=== PATIENT | male | born 1960 | race American Indian/Alaskan Native ===

== ENCOUNTER 2020-10-21 15:56 | Inpatient (IN) | payer OTHER ==
[2020-10-21 19:13] LABS: INR 1.07 (0.83-1.09); PROTHROMBIN TIME (PATIENT) 12.9 SEC (9.7-13.0)
[2020-10-21 19:16] LABS: ACTIVATED PTT 30.7 SECONDS (25.2-36.5)
[2020-10-21 19:26] LABS: CHLORIDE 108 mmol/L (98-107); SODIUM 131 mmol/L (136-145)
[2020-10-21 19:29] LABS: ALBUMIN 3.5 g/dl (3.4-5.0); ANION GAP 16 MMOL/L (8-16); BLOOD UREA NITROGEN 100.4 mg/dL (7-18); CALCIUM 8.2 mg/dL (8.5-10.1); CO2 6 mmol/L (21-32); GLUCOSE,RANDOM 273 mg/dL (74-106)
[2020-10-21 19:32] LABS: SGOT/AST 19 U/L (15-37); SGPT/ALT 79 U/L (13-61)
[2020-10-21 19:34] LABS: BILIRUBIN,TOTAL 0.6 mg/dL (0.2-1); TOT PROT 7.4 g/dl (6.4-8.2)
[2020-10-21 19:35] LABS: ALK PHOS 158 U/L (45-117)
[2020-10-21 19:37] LABS: N-TERMINAL BNP 2573.6 pg/ml (5-125)
[2020-10-21 20:02] LABS: BASO % 0.7 % (0-2.0); EOS % 2.9 % (0-4.5); HEMATOCRIT 25.4 % (35.4-49); HEMOGLOBIN 8.4 GM/dL (11.7-16.9); LYMPH % 21.8 % (8-40); MCH 31.4 pg (25.7-33.7); MCHC 32.8 g/dl (32.0-35.9); MEAN CELL VOLUME 95.7 fl (80-96); MONO % 10.7 % (3.8-10.2); NEUT % 63.9 % (42.8-82.8); PLATELET COUNT 258 K/MM3 (134-434); RBC 2.66 M/mm3 (4.00-5.60); RDW 15.2 % (11.9-15.9); WHITE BLOOD COUNT 9.4 K/mm3 (4.0-10.0)
[2020-10-21 20:03] LABS: CREATININE 12.2 mg/dL (0.55-1.3)
[2020-10-21] MEDS ORDERED: SODIUM CHLORIDE 0.9% 500 ML INFUS.BAG IV ONE (20:47)
[2020-10-21] MEDS ORDERED: SODIUM CHLORIDE 0.45% 1,000 ML with SODIUM BICARBONATE 8.4% - 75 MEQ IV SCH (21:00)
[2020-10-21] MEDS ORDERED: SODIUM BICARBONATE 8.4% - 75 MEQ in SODIUM CHLORIDE 0.45% 1,000 ML IV SCH (21:25)
[2020-10-21 22:28] LABS: EPI CELLS 5 /uL (0-25.1); HYALINE CASTS 0 /uL (0-3.1); URINE APPEARANCE CLEAR; URINE BACTERIA 43 /uL (0-1359); URINE BILIRUBIN NEGATIVE (NEGATIVE); URINE COLOR YELLOW; URINE GLUCOSE (UA) 1+ (NEGATIVE); URINE KETONE NEGATIVE (NEGATIVE); URINE LEUK ESTERASE NEGATIVE (NEGATIVE); URINE NITRITE NEGATIVE (NEGATIVE); URINE PROTEIN TRACE (NEGATIVE); URINE RBC 22 /uL (0-23.9); URINE UROBILINOGEN 0.2 mg/dL (0.2-1.0); URINE WBC 8 /uL (0-25.8)
[2020-10-21 23:14] LABS: VENOUS PCO2 22.6 mmHg (38-52)
[2020-10-21 23:16] LABS: VENOUS PH 6.976 (7.310-7.410)
[2020-10-21 23:43] LABS: BLOOD UREA NITROGEN 97.4 mg/dL (7-18)
[2020-10-22 00:52] LABS: CREATININE 12.2 mg/dL (0.55-1.3)
[2020-10-22] MEDS: PANTOPRAZOLE SODIUM 40 MG VIAL IVPUSH SCH ×2 (01:16→09:21)
[2020-10-22 02:04] LABS: MAGNESIUM 1.7 mg/dL (1.8-2.4)
[2020-10-22 02:05] LABS: MAGNESIUM 1.6 mg/dL (1.8-2.4)
[2020-10-22 02:17] LABS: PHOSPHOROUS 8.9 mg/dL (2.5-4.9)
[2020-10-22 02:36] LABS: PHOSPHOROUS 9.1 mg/dL (2.5-4.9)
[2020-10-22] MEDS: INSULIN SLIDING SCALE (NOVOLOG) 1 VIAL SQ SCH ×3 (06:59→16:57)
[2020-10-22 08:21] LABS: BASO % 0.3 % (0-2.0); EOS % 3.5 % (0-4.5); HEMATOCRIT 24.4 % (35.4-49); HEMOGLOBIN 8.3 GM/dL (11.7-16.9); LYMPH % 24.6 % (8-40); MEAN CELL VOLUME 94.1 fl (80-96); MEAN PLT VOLUME 8.8 fl (7.5-11.1); MONO % 10.4 % (3.8-10.2); NEUT % 61.2 % (42.8-82.8); PLATELET COUNT 273 K/MM3 (134-434); RDW 15.1 % (11.9-15.9); WHITE BLOOD COUNT 10.5 K/mm3 (4.0-10.0)
[2020-10-22 08:47] LABS: BLOOD UREA NITROGEN 100.9 mg/dL (7-18)
[2020-10-22] MEDS ORDERED: DEXTROSE 5%-WATER - 1,000 ML with SODIUM BICARBONATE 8.4% - 150 MEQ IV SCH ×2 (09:15→12:18)
[2020-10-22] MEDS ORDERED: MAGNESIUM 1GM/D5W - 1 GM/100 ML IVPB IVPB ONE (09:23)
[2020-10-22 09:33] LABS: CREATININE 12.4 mg/dL (0.55-1.3)
[2020-10-22] MEDS ORDERED: LIDOCAINE HCL 1%, 10 MG/ML (20ML VIAL) ONE (11:31)
[2020-10-22] MEDS ORDERED: SODIUM BICARBONATE 8.4% - 150 MEQ in DEXTROSE 5%-WATER - 1,000 ML IV SCH ×2 (12:19→15:00)
[2020-10-22] MEDS ORDERED: SODIUM CHLORIDE 250 ML IV PRN (15:05)
[2020-10-23] MEDS: INSULIN SLIDING SCALE (NOVOLOG) 1 VIAL SQ SCH ×3 (06:46→16:43)
[2020-10-23 07:35] LABS: BASO % 0.5 % (0-2.0); EOS % 1.3 % (0-4.5); HEMATOCRIT 20.7 % (35.4-49); HEMOGLOBIN 7.2 GM/dL (11.7-16.9); LYMPH % 17.1 % (8-40); MCH 31.8 pg (25.7-33.7); MCHC 34.6 g/dl (32.0-35.9); MEAN CELL VOLUME 91.7 fl (80-96); MEAN PLT VOLUME 8.5 fl (7.5-11.1); MONO % 12.2 % (3.8-10.2); NEUT % 68.9 % (42.8-82.8); PLATELET COUNT 227 K/MM3 (134-434); RBC 2.25 M/mm3 (4.00-5.60); RDW 15.2 % (11.9-15.9); WHITE BLOOD COUNT 7.2 K/mm3 (4.0-10.0)
[2020-10-23 08:29] LABS: HDL CHOLESTEROL 35 mg/dL (40-60); LDL CHOLESTEROL (ONLY SJRH) 61 mg/dL (5-100)
[2020-10-23 08:30] LABS: CHOLESTEROL 102 mg/dL (50-200)
[2020-10-23 08:31] LABS: TRIGLYCERIDES 52 mg/dL (0-150)
[2020-10-23 09:07] LABS: BLOOD UREA NITROGEN 56.7 mg/dL (7-18)
[2020-10-23] MEDS: PANTOPRAZOLE SODIUM 40 MG VIAL IVPUSH SCH (09:07)
[2020-10-23 09:19] LABS: CREATININE 7.8 mg/dL (0.55-1.3)
[2020-10-23 09:20] LABS: CALCIUM 6.9 mg/dL (8.5-10.1)
[2020-10-23] MEDS ORDERED: POTASSIUM CHLORIDE ORAL LIQUID 20 MEQ/15 ML PO ONE (10:05)
[2020-10-23] MEDS: CALCITRIOL 0.25 MCG CAPSULE (FP) PO SCH (10:48)
[2020-10-23] MEDS: CALCIUM ACETATE 667 MG CAPSULE (FP) PO SCH ×2 (11:35→17:34)
[2020-10-23] MEDS ORDERED: SODIUM CHLORIDE 500 ML IV ONE (11:45)
[2020-10-23 12:31] LABS: MAGNESIUM 1.5 mg/dL (1.8-2.4)
[2020-10-23 12:34] LABS: PHOSPHOROUS 6.1 mg/dL (2.5-4.9)
[2020-10-23] MEDS: MAGNESIUM 1GM/D5W - 1 GM/100 ML IVPB IVPB SCH ×2 (13:56→14:21)
[2020-10-23] MEDS ORDERED: SODIUM BICARBONATE 8.4% - 150 MEQ in DEXTROSE 5%-WATER - 1,000 ML IV SCH (15:19)
[2020-10-24] MEDS: INSULIN SLIDING SCALE (NOVOLOG) 1 VIAL SQ SCH ×3 (06:16→18:39)
[2020-10-24] MEDS ORDERED: LEVOTHYROXINE NA 50 MCG TABLET (FP) PO SCH (07:00)
[2020-10-24] MEDS: CALCIUM ACETATE 667 MG CAPSULE (FP) PO SCH ×4 (07:49→18:39)
[2020-10-24] MEDS: CALCITRIOL 0.25 MCG CAPSULE (FP) PO SCH (09:14)
[2020-10-24] MEDS: PANTOPRAZOLE SODIUM 40 MG VIAL IVPUSH SCH (09:14)
[2020-10-24] MEDS ORDERED: SODIUM CHLORIDE 250 ML IV PRN ×2 (10:46→10:52)
[2020-10-24] MEDS ORDERED: EPOETIN ALFA 10,000 UNIT/1 ML VIAL SQ ONE (10:52)
[2020-10-24] MEDS: DOXYCYCLINE HYCLATE 100 MG CAPSULE PO SCH ×2 (11:00→19:08)
[2020-10-24] MEDS ORDERED: HEPARIN NA (PORCINE) 5,000 UNITS/ML 1ML VIAL ONE (15:53)
[2020-10-24] MEDS ORDERED: PROPOFOL 20 ML ONE ×2 (16:06)
[2020-10-24] MEDS ORDERED: MIDAZOLAM HCL 2 MG/2 ML SINGLE DOSE VIAL ONE (16:07)
[2020-10-24] MEDS ORDERED: SUCCINYLCHOLINE CHLORIDE 200 MG/10 ML SYRINGE ONE (16:09)
[2020-10-24 16:28] LABS: CALCIUM 7.4 mg/dL (8.5-10.1)
[2020-10-24] MEDS ORDERED: ONDANSETRON 4 MG/2 ML VIAL IVPUSH PRN ×2 (16:28→18:17)
[2020-10-24 16:29] LABS: BLOOD UREA NITROGEN 61.7 mg/dL (7-18)
[2020-10-24] MEDS ORDERED: SODIUM CHLORIDE 1,000 ML IV SCH ×2 (16:30→18:17)
[2020-10-24 16:39] LABS: CREATININE 8.8 mg/dL (0.55-1.3)
[2020-10-24] MEDS ORDERED: LIDOCAINE HCL 1%, 10 MG/ML (20ML VIAL) NR ONE ×2 (17:16)
[2020-10-24] MEDS ORDERED: MORPHINE SULFATE 2 MG/ML VIAL IVPUSH PRN (21:57)
[2020-10-24] MEDS ORDERED: Insulin (LOG) Aspart 100 UNITS/ML VIAL SQ ONE (23:27)
[2020-10-25] MEDS: INSULIN SLIDING SCALE (NOVOLOG) 1 VIAL SQ SCH ×3 (06:14→17:21)
[2020-10-25] MEDS: LEVOTHYROXINE NA 50 MCG TABLET (FP) PO SCH (06:15)
[2020-10-25] MEDS ORDERED: PT OWN MED DRAWER 7, Y5N ONE (08:50)
[2020-10-25] MEDS: PANTOPRAZOLE SODIUM 40 MG VIAL IVPUSH SCH ×2 (08:57→11:11)
[2020-10-25] MEDS: CALCIUM ACETATE 667 MG CAPSULE (FP) PO SCH ×3 (08:57→17:20)
[2020-10-25] MEDS: CALCITRIOL 0.25 MCG CAPSULE (FP) PO SCH ×2 (08:58→11:11)
[2020-10-25] MEDS: DOXYCYCLINE HYCLATE 100 MG CAPSULE PO SCH ×3 (08:58→17:20)
[2020-10-25] MEDS ORDERED: SODIUM CHLORIDE 250 ML IV PRN (11:00)
[2020-10-25] MEDS ORDERED: EPOETIN ALFA 10,000 UNIT/1 ML VIAL SQ ONE (11:15)
[2020-10-25] MEDS ORDERED: Insulin (LOG) Aspart 100 UNITS/ML VIAL SQ ONE (23:25)
[2020-10-26] MEDS: LEVOTHYROXINE NA 50 MCG TABLET (FP) PO SCH (06:41)
[2020-10-26] MEDS: INSULIN SLIDING SCALE (NOVOLOG) 1 VIAL SQ SCH ×3 (06:43→18:26)
[2020-10-26 09:15] LABS: BASO % 0.3 % (0-2.0); EOS % 3.1 % (0-4.5); HEMATOCRIT 20.2 % (35.4-49); LYMPH % 29.2 % (8-40); MCH 31.7 pg (25.7-33.7); MCHC 33.6 g/dl (32.0-35.9); MEAN CELL VOLUME 94.4 fl (80-96); MEAN PLT VOLUME 8.8 fl (7.5-11.1); MONO % 8.8 % (3.8-10.2); NEUT % 58.6 % (42.8-82.8); PLATELET COUNT 170 K/MM3 (134-434); RBC 2.14 M/mm3 (4.00-5.60); RDW 15.3 % (11.9-15.9); WHITE BLOOD COUNT 7.7 K/mm3 (4.0-10.0)
[2020-10-26 09:59] LABS: CALCIUM 7.9 mg/dL (8.5-10.1)
[2020-10-26 10:03] LABS: CREATININE 5.9 mg/dL (0.55-1.3); PHOSPHOROUS 3.6 mg/dL (2.5-4.9)
[2020-10-26 10:04] LABS: BILIRUBIN,TOTAL 0.8 mg/dL (0.2-1)
[2020-10-26 10:06] LABS: TOT PROT 5.4 g/dl (6.4-8.2)
[2020-10-26] MEDS: CALCITRIOL 0.25 MCG CAPSULE (FP) PO SCH (10:24)
[2020-10-26] MEDS: CALCIUM ACETATE 667 MG CAPSULE (FP) PO SCH ×3 (10:25→18:23)
[2020-10-26] MEDS: DOXYCYCLINE HYCLATE 100 MG CAPSULE PO SCH ×2 (10:25→18:24)
[2020-10-26] MEDS: PANTOPRAZOLE SODIUM 40 MG VIAL IVPUSH SCH (10:25)
[2020-10-26 10:38] LABS: ALBUMIN 2.6 g/dl (3.4-5.0); BLOOD UREA NITROGEN 30.8 mg/dL (7-18)
[2020-10-26 11:15] LABS: HEMOGLOBIN 6.8 GM/dL (11.7-16.9)
[2020-10-27] MEDS: glipiZIDE 5 MG TABLET (FP) PO SCH (06:03)
[2020-10-27] MEDS: LEVOTHYROXINE NA 50 MCG TABLET (FP) PO SCH (06:03)
[2020-10-27] MEDS: INSULIN SLIDING SCALE (NOVOLOG) 1 VIAL SQ SCH ×3 (06:03→16:10)
[2020-10-27 08:04] LABS: BASO % 0.4 % (0-2.0); EOS % 3.3 % (0-4.5); HEMATOCRIT 24.9 % (35.4-49); HEMOGLOBIN 8.5 GM/dL (11.7-16.9); LYMPH % 25.9 % (8-40); MCHC 34.3 g/dl (32.0-35.9); MEAN CELL VOLUME 93.3 fl (80-96); MEAN PLT VOLUME 8.6 fl (7.5-11.1); MONO % 9.1 % (3.8-10.2); NEUT % 61.3 % (42.8-82.8); PLATELET COUNT 164 K/MM3 (134-434); RBC 2.66 M/mm3 (4.00-5.60); RDW 14.9 % (11.9-15.9); WHITE BLOOD COUNT 10.1 K/mm3 (4.0-10.0)
[2020-10-27] MEDS ORDERED: PT OWN MED DRAWER 7, Y5N ONE (08:17)
[2020-10-27] MEDS ORDERED: SODIUM CHLORIDE 250 ML IV PRN (08:57)
[2020-10-27] MEDS ORDERED: EPOETIN ALFA 10,000 UNIT/1 ML VIAL SQ ONE (09:00)
[2020-10-27 10:33] LABS: CALCIUM 7.9 mg/dL (8.5-10.1)
[2020-10-27 10:34] LABS: ALBUMIN 2.8 g/dl (3.4-5.0); BLOOD UREA NITROGEN 37.3 mg/dL (7-18)
[2020-10-27 10:37] LABS: CREATININE 7.3 mg/dL (0.55-1.3)
[2020-10-27 10:38] LABS: TOT PROT 5.8 g/dl (6.4-8.2)
[2020-10-27 10:40] LABS: BILIRUBIN,TOTAL 1.8 mg/dL (0.2-1)
[2020-10-27] MEDS: CALCIUM ACETATE 667 MG CAPSULE (FP) PO SCH ×3 (11:30→16:54)
[2020-10-27] MEDS: CALCITRIOL 0.25 MCG CAPSULE (FP) PO SCH (14:38)
[2020-10-27] MEDS: PANTOPRAZOLE SODIUM 40 MG VIAL IVPUSH SCH (14:38)
[2020-10-27] MEDS: DOXYCYCLINE HYCLATE 100 MG CAPSULE PO SCH ×2 (14:38→17:04)
[2020-10-28] MEDS ORDERED: PT OWN MED DRAWER 7, Y5N ONE ×2 (06:18→09:20)
[2020-10-28] MEDS: INSULIN SLIDING SCALE (NOVOLOG) 1 VIAL SQ SCH ×3 (06:26→17:44)
[2020-10-28] MEDS: LEVOTHYROXINE NA 50 MCG TABLET (FP) PO SCH (06:26)
[2020-10-28] MEDS: glipiZIDE 5 MG TABLET (FP) PO SCH (06:26)
[2020-10-28 08:04] LABS: HEMATOCRIT 24.4 % (35.4-49); MCH 30.8 pg (25.7-33.7); MCHC 32.6 g/dl (32.0-35.9); MEAN CELL VOLUME 94.6 fl (80-96); MEAN PLT VOLUME 9.1 fl (7.5-11.1); PLATELET COUNT 149 K/MM3 (134-434); RBC 2.58 M/mm3 (4.00-5.60); RDW 15.7 % (11.9-15.9); WHITE BLOOD COUNT 11.6 K/mm3 (4.0-10.0)
[2020-10-28 08:27] LABS: BLOOD UREA NITROGEN 21.6 mg/dL (7-18); CALCIUM 7.6 mg/dL (8.5-10.1)
[2020-10-28] MEDS: CALCIUM ACETATE 667 MG CAPSULE (FP) PO SCH ×3 (08:50→17:44)
[2020-10-28] MEDS: PANTOPRAZOLE SODIUM 40 MG VIAL IVPUSH SCH (09:33)
[2020-10-28] MEDS: DOXYCYCLINE HYCLATE 100 MG CAPSULE PO SCH ×2 (09:34→17:44)
[2020-10-28] MEDS: CALCITRIOL 0.25 MCG CAPSULE (FP) PO SCH (09:34)
[2020-10-29] MEDS ORDERED: INSULIN (NOVOLOG) ASPART 100 UNITS/ML 10ML VIAL ONE (05:07)
[2020-10-29] MEDS: glipiZIDE 5 MG TABLET (FP) PO SCH (06:01)
[2020-10-29] MEDS: LEVOTHYROXINE NA 50 MCG TABLET (FP) PO SCH (06:01)
[2020-10-29] MEDS: INSULIN SLIDING SCALE (NOVOLOG) 1 VIAL SQ SCH ×3 (06:01→17:44)
[2020-10-29] MEDS: CALCIUM ACETATE 667 MG CAPSULE (FP) PO SCH ×3 (08:32→17:45)
[2020-10-29] MEDS: PANTOPRAZOLE SODIUM 40 MG VIAL IVPUSH SCH (10:11)
[2020-10-29] MEDS: DOXYCYCLINE HYCLATE 100 MG CAPSULE PO SCH ×2 (10:11→17:42)
[2020-10-29] MEDS: CALCITRIOL 0.25 MCG CAPSULE (FP) PO SCH (10:11)
[2020-10-29 12:31] LABS: HEMATOCRIT 26.5 % (35.4-49); HEMOGLOBIN 8.8 GM/dL (11.7-16.9); MCH 31.6 pg (25.7-33.7); MCHC 33.2 g/dl (32.0-35.9); MEAN CELL VOLUME 95.1 fl (80-96); MEAN PLT VOLUME 9.3 fl (7.5-11.1); PLATELET COUNT 189 K/MM3 (134-434); RBC 2.78 M/mm3 (4.00-5.60); RDW 16.2 % (11.9-15.9); WHITE BLOOD COUNT 9.4 K/mm3 (4.0-10.0)
[2020-10-29 12:59] LABS: CALCIUM 7.8 mg/dL (8.5-10.1)
[2020-10-29 13:00] LABS: BLOOD UREA NITROGEN 28.5 mg/dL (7-18)
[2020-10-29 13:03] LABS: CREATININE 6.8 mg/dL (0.55-1.3)
[2020-10-29 14:59] LABS: INR 1.2 (0.83-1.09); PROTHROMBIN TIME (PATIENT) 14.4 SEC (9.7-13.0)
[2020-10-29 15:02] LABS: ACTIVATED PTT 30.5 SECONDS (25.2-36.5)
[2020-10-29] MEDS: PANTOPRAZOLE 20 MG TABLET PO SCH (15:44)
[2020-10-29 16:44] VITALS: BMI 22.0
[2020-10-30] MEDS ORDERED: DEXTROSE 50%-WATER 25 GM/50 ML DISP.SYRIN ONE (07:38)
[2020-10-30] MEDS ORDERED: DEXTROSE 50%-WATER - 25 GM/50 ML VIAL IVPUSH ONE (07:45)
[2020-10-30] MEDS: INSULIN SLIDING SCALE (NOVOLOG) 1 VIAL SQ SCH ×3 (07:54→18:24)
[2020-10-30] MEDS: glipiZIDE 5 MG TABLET (FP) PO SCH (07:54)
[2020-10-30] MEDS: LEVOTHYROXINE NA 50 MCG TABLET (FP) PO SCH (07:54)
[2020-10-30 08:47] LABS: BASO % 0.7 % (0-2.0); EOS % 2.4 % (0-4.5); HEMATOCRIT 24.3 % (35.4-49); HEMOGLOBIN 8.1 GM/dL (11.7-16.9); LYMPH % 24.6 % (8-40); MCH 31.7 pg (25.7-33.7); MCHC 33.4 g/dl (32.0-35.9); MEAN CELL VOLUME 94.9 fl (80-96); MEAN PLT VOLUME 8.6 fl (7.5-11.1); MONO % 7.9 % (3.8-10.2); NEUT % 64.4 % (42.8-82.8); PLATELET COUNT 177 K/MM3 (134-434); RBC 2.56 M/mm3 (4.00-5.60); RDW 15.6 % (11.9-15.9); WHITE BLOOD COUNT 11.9 K/mm3 (4.0-10.0)
[2020-10-30 09:29] LABS: BLOOD UREA NITROGEN 35.7 mg/dL (7-18)
[2020-10-30 09:31] LABS: CALCIUM 8.1 mg/dL (8.5-10.1)
[2020-10-30 09:33] LABS: PHOSPHOROUS 4.4 mg/dL (2.5-4.9)
[2020-10-30] MEDS: CALCIUM ACETATE 667 MG CAPSULE (FP) PO SCH ×3 (10:47→18:24)
[2020-10-30] MEDS: DEXTROSE 5%-WATER - 1,000 ML IV SCH (11:15)
[2020-10-30] MEDS ORDERED: SODIUM CHLORIDE 250 ML IV PRN ×2 (11:44→15:44)
[2020-10-30] MEDS ORDERED: IRON SUCROSE INJECTION 100 MG in SODIUM CHLORIDE 95 ML IVPB ONE (16:00)
[2020-10-30] MEDS ORDERED: EPOETIN ALFA 10,000 UNIT/1 ML VIAL SQ ONE (16:00)
[2020-10-30] MEDS: CALCITRIOL 0.25 MCG CAPSULE (FP) PO SCH (18:23)
[2020-10-30] MEDS: PANTOPRAZOLE 20 MG TABLET PO SCH (18:23)
[2020-10-30] MEDS: DOXYCYCLINE HYCLATE 100 MG CAPSULE PO SCH ×2 (18:23→21:13)
[2020-10-31] MEDS: glipiZIDE 5 MG TABLET (FP) PO SCH (06:52)
[2020-10-31] MEDS: LEVOTHYROXINE NA 50 MCG TABLET (FP) PO SCH (06:52)
[2020-10-31] MEDS: INSULIN SLIDING SCALE (NOVOLOG) 1 VIAL SQ SCH ×3 (06:53→16:21)
[2020-10-31 08:44] LABS: HEMATOCRIT 23.8 % (35.4-49); MCH 31.9 pg (25.7-33.7); MCHC 33.6 g/dl (32.0-35.9); MEAN CELL VOLUME 94.7 fl (80-96); MEAN PLT VOLUME 8.7 fl (7.5-11.1); PLATELET COUNT 161 K/MM3 (134-434); RBC 2.52 M/mm3 (4.00-5.60); RDW 15.8 % (11.9-15.9); WHITE BLOOD COUNT 8.7 K/mm3 (4.0-10.0)
[2020-10-31] MEDS: CALCIUM ACETATE 667 MG CAPSULE (FP) PO SCH ×3 (08:55→17:17)
[2020-10-31 09:17] LABS: CALCIUM 7.3 mg/dL (8.5-10.1)
[2020-10-31 09:18] LABS: PHOSPHOROUS 3.4 mg/dL (2.5-4.9)
[2020-10-31] MEDS ORDERED: DEXTROSE 50%-WATER 25 GM/50 ML DISP.SYRIN ONE (10:43)
[2020-10-31] MEDS ORDERED: DEXTROSE 50%-WATER 25 GM/50 ML DISP.SYRIN IVPUSH ONE (11:00)
[2020-10-31] MEDS: DEXTROSE 5%-WATER - 1,000 ML IV SCH ×3 (11:34→18:26)
[2020-10-31] MEDS: PANTOPRAZOLE 20 MG TABLET PO SCH (11:52)
[2020-10-31] MEDS: CALCITRIOL 0.25 MCG CAPSULE (FP) PO SCH (11:52)
[2020-10-31] MEDS: DOXYCYCLINE HYCLATE 100 MG CAPSULE PO SCH ×2 (11:53→17:19)
[2020-10-31] MEDS ORDERED: MIDAZOLAM HCL 2 MG/2 ML SINGLE DOSE VIAL IVPUSH ONE (13:55)
[2020-11-01] MEDS ORDERED: PT OWN MED DRAWER 7, Y5N ONE (06:23)
[2020-11-01] MEDS: LEVOTHYROXINE NA 50 MCG TABLET (FP) PO SCH (06:27)
[2020-11-01] MEDS: glipiZIDE 5 MG TABLET (FP) PO SCH (06:27)
[2020-11-01] MEDS: INSULIN SLIDING SCALE (NOVOLOG) 1 VIAL SQ SCH ×2 (06:28→12:49)
[2020-11-01] MEDS ORDERED: EPOETIN ALFA-EPBX 20,000 UNIT/ML VIAL SQ ONE (08:00)
[2020-11-01] MEDS ORDERED: SODIUM CHLORIDE 250 ML IV PRN (08:00)
[2020-11-01] MEDS ORDERED: IRON SUCROSE INJECTION 100 MG in SODIUM CHLORIDE 95 ML IVPB ONE (08:00)
[2020-11-01] MEDS: CALCIUM ACETATE 667 MG CAPSULE (FP) PO SCH ×2 (08:07→12:44)
[2020-11-01 10:39] LABS: HEMOGLOBIN 8.5 GM/dL (11.7-16.9); MCH 31.6 pg (25.7-33.7); MCHC 32.7 g/dl (32.0-35.9); MEAN CELL VOLUME 96.4 fl (80-96); MEAN PLT VOLUME 8.9 fl (7.5-11.1); PLATELET COUNT 168 K/MM3 (134-434); RDW 16.1 % (11.9-15.9); WHITE BLOOD COUNT 7.6 K/mm3 (4.0-10.0)
[2020-11-01 11:06] LABS: CALCIUM 7.6 mg/dL (8.5-10.1)
[2020-11-01 11:07] LABS: BLOOD UREA NITROGEN 28.6 mg/dL (7-18)
[2020-11-01 11:10] LABS: CREATININE 6.1 mg/dL (0.55-1.3); PHOSPHOROUS 3.5 mg/dL (2.5-4.9)
[2020-11-01 11:31] VITALS: PULSE 60
[2020-11-01] MEDS: PANTOPRAZOLE 20 MG TABLET PO SCH (12:43)
[2020-11-01] MEDS: CALCITRIOL 0.25 MCG CAPSULE (FP) PO SCH (12:44)
[2020-11-01 15:21] VITALS: BP 141/73; TEMP 97.5
[2020-11-01 17:08] LABS: ATYPICAL pANCA <1:20 titer (Neg:<1:20); C-ANCA <1:20 titer (Neg:<1:20)
== END 2020-11-01 16:46 | disposition home or self-care (01) | DRG 470 ==
LOC: JER 15:56 → JERBED 22:03 → J4W 10-22 02:55 → J8W 10-24 11:28
PROVIDERS: ADMIT Internal Medicine; ATTEND Internal Medicine
PROC: B543ZZA Ultrasonography of Right Jugular Veins, Guidance (ICD-10-PCS; 2020-10-24)
PROC: 05HM33Z Insertion of Infusion Device into Right Internal Jugular Vein, Percutaneous Approach (ICD-10-PCS; principal; 2020-10-24 16:00)
PROC: 30233N1 Transfusion of Nonautologous Red Blood Cells into Peripheral Vein, Percutaneous Approach (ICD-10-PCS; 2020-10-27)
PROC: 5A1D70Z Performance of Urinary Filtration, Intermittent, Less than 6 Hours Per Day (ICD-10-PCS; 2020-10-30)
PROC: 0TB03ZX Excision of Right Kidney, Percutaneous Approach, Diagnostic (ICD-10-PCS; 2020-10-31)
PROC: 5A1D70Z Performance of Urinary Filtration, Intermittent, Less than 6 Hours Per Day (ICD-10-PCS; 2020-11-01)
DX: I12.0 Hypertensive chronic kidney disease with stage 5 chronic kidney disease or end stage renal disease (principal); N18.6 End stage renal disease; G92 Toxic encephalopathy; N17.9 Acute kidney failure, unspecified; E87.2 Acidosis; E11.649 Type 2 diabetes mellitus with hypoglycemia without coma; E11.22 Type 2 diabetes mellitus with diabetic chronic kidney disease; R64 Cachexia; Z68.22 Body mass index [BMI] 22.0-22.9, adult; D64.9 Anemia, unspecified; E87.6 Hypokalemia; R80.9 Proteinuria, unspecified
CPT/HCPCS: 36415; 36430; 50200; 70450-TC; 71045-TC-FY; 71250-TC; 74176-TC; 76000-TC-FY; 80048; 80053; 80061; 80307; 81003; 82010; 82140; 82550; 82565; 82728; 82803; 82962; 83036; 83520; 83540; 83550; 83690; 83721; 83735; 83880; 84100; 84155; 84165; 84300; 84439; 84443; 84479; 84484; 85025; 85027; 85610; 85730; 86038; 86160; 86225; 86256; 86704; 86706; 86707; 86708; 86709; 86780; 86803; 86850; 86900; 86901; 86922; 87086; 87340; 88300-TC; 88329; 93005; 93010; 94760; 99285-25; C9803; J0885; J1644; J1756; P9058; U0003

== ENCOUNTER 2020-12-14 04:34 | Day surgery (SDC) | payer OTHER ==
[2020-12-12 10:36] VITALS: BMI 21.2
[2020-12-14] MEDS ORDERED: LIDOCAINE HCL 1%, 10 MG/ML (20ML VIAL) ONE (07:06)
[2020-12-14] MEDS ORDERED: HEPARIN NA (PORCINE) 5,000 UNITS/ML 1ML VIAL ONE (07:06)
[2020-12-14] MEDS ORDERED: ONDANSETRON 4 MG/2 ML VIAL IVPUSH PRN (07:40)
[2020-12-14] MEDS ORDERED: LIDOCAINE HCL 1%, 10 MG/ML (20ML VIAL) INF ONE (07:55)
[2020-12-14] MEDS ORDERED: MIDAZOLAM HCL 2 MG/2 ML SINGLE DOSE VIAL ONE ×3 (07:55→10:09)
[2020-12-14] MEDS ORDERED: ceFAZolin SODIUM 1 GM VIAL IVPB ONE (08:00)
[2020-12-14] MEDS ORDERED: hydrALAZINE HCL 20 MG/ML VIAL IVPUSH PRN (09:31)
[2020-12-14] MEDS ORDERED: oxyCODONE HCL 5 MG TABLET PO PRN (11:58)
[2020-12-14 13:18] VITALS: BP 136/66; PULSE 64; TEMP 97.8
== END 2020-12-14 13:00 | disposition home or self-care (01) ==
LOC: JASU-SURG 04:34
PROVIDERS: ATTEND Surgery Vascular Surgery
PROC: 03180ZD Bypass Left Brachial Artery to Upper Arm Vein, Open Approach (ICD-10-PCS; principal; 2020-12-14 07:30)
DX: I12.0 Hypertensive chronic kidney disease with stage 5 chronic kidney disease or end stage renal disease (principal); E11.22 Type 2 diabetes mellitus with diabetic chronic kidney disease; N18.6 End stage renal disease; Z99.2 Dependence on renal dialysis
CPT/HCPCS: 36415; 82962; 84132; 94760; J1644

== ENCOUNTER 2021-01-31 04:30 | Day surgery (SDC) | payer OTHER ==
[2021-01-30 11:42] VITALS: BMI 21.2
[2021-01-31] MEDS ORDERED: LIDOCAINE HCL 1%, 10 MG/ML (20ML VIAL) ONE (12:22)
[2021-01-31] MEDS ORDERED: HEPARIN NA (PORCINE) 5,000 UNITS/ML 1ML VIAL ONE ×2 (12:23→14:50)
[2021-01-31] MEDS ORDERED: DEXTROSE 50%-WATER 25 GM/50 ML DISP.SYRIN ONE (13:05)
[2021-01-31] MEDS ORDERED: DEXTROSE 50%-WATER 25 GM/50 ML DISP.SYRIN IVPUSH ONE (13:15)
[2021-01-31] MEDS ORDERED: MIDAZOLAM HCL 2 MG/2 ML SINGLE DOSE VIAL ONE (14:08)
[2021-01-31] MEDS ORDERED: LIDOCAINE HCL/PF 2% SDV 5ML VIAL ONE (14:09)
[2021-01-31] MEDS ORDERED: PROPOFOL 20 ML ONE ×3 (14:09)
[2021-01-31] MEDS ORDERED: ceFAZolin SODIUM 1 GM VIAL IVPB ONE (14:30)
[2021-01-31] MEDS ORDERED: ceFAZolin SODIUM 1 GM VIAL ONE (14:37)
[2021-01-31] MEDS ORDERED: LIDOCAINE HCL 1%, 10 MG/ML (20ML VIAL) PNB ONE (14:47)
[2021-01-31] MEDS ORDERED: oxyCODONE HCL 5 MG TABLET PO PRN (15:16)
[2021-01-31] MEDS ORDERED: ONDANSETRON 4 MG/2 ML VIAL IVPUSH PRN (15:16)
[2021-01-31] MEDS ORDERED: SODIUM CHLORIDE 1,000 ML IV SCH (15:30)
[2021-01-31 16:14] VITALS: BP 130/69; PULSE 63; TEMP 97.5
== END 2021-01-31 16:37 | disposition home or self-care (01) ==
LOC: JASU-SURG 04:30
PROVIDERS: ATTEND Surgery Vascular Surgery
PROC: 03783ZZ Dilation of Left Brachial Artery, Percutaneous Approach (ICD-10-PCS; principal; 2021-01-31 14:00)
DX: I12.0 Hypertensive chronic kidney disease with stage 5 chronic kidney disease or end stage renal disease (principal); N18.6 End stage renal disease; E11.22 Type 2 diabetes mellitus with diabetic chronic kidney disease; Z99.2 Dependence on renal dialysis; Z79.84 Long term (current) use of oral hypoglycemic drugs
CPT/HCPCS: 36415; 76000-TC-FY; 82947; 82962; 84132; 94760; J1644

== ENCOUNTER 2022-01-18 05:42 | Observation (INO) | payer OTHER ==
[2022-01-18 06:40] LABS: BASO % 1.3 % (0-2.0); EOS % 1.7 % (0-4.5); HEMATOCRIT 28.7 % (35.4-49); HEMOGLOBIN 9.3 GM/dL (11.7-16.9); LYMPH % 28.7 % (8-40); MCH 31.3 pg (25.7-33.7); MCHC 32.4 g/dl (32.0-35.9); MEAN CELL VOLUME 96.7 fl (80-96); MEAN PLT VOLUME 8.5 fl (7.5-11.1); NEUT % 62.3 % (42.8-82.8); PLATELET COUNT 166 10^3/uL (134-434); RBC 2.97 M/mm3 (4.00-5.60); RDW 15.8 % (11.9-15.9); WHITE BLOOD COUNT 5.9 K/mm3 (4.0-10.0)
[2022-01-18 06:56] LABS: CHLORIDE 103 mmol/L (98-107); SODIUM 137 mmol/L (136-145)
[2022-01-18 06:59] LABS: ANION GAP 11 MMOL/L (8-16); BLOOD UREA NITROGEN 45.1 mg/dL (7-18); CO2 23 mmol/L (21-32); GLUCOSE,RANDOM 168 mg/dL (74-106)
[2022-01-18 07:02] LABS: SGOT/AST 28 U/L (15-37); SGPT/ALT 39 U/L (13-61)
[2022-01-18 07:04] LABS: BILIRUBIN,TOTAL 0.4 mg/dL (0.2-1); TOT PROT 7.2 g/dl (6.4-8.2)
[2022-01-18 07:05] LABS: ALK PHOS 127 U/L (45-117)
[2022-01-18 08:02] LABS: N-TERMINAL BNP 16620.5 pg/ml (5-125)
[2022-01-18 08:30] LABS: CREATININE 9.7 mg/dL (0.55-1.3)
[2022-01-18] MEDS ORDERED: CALCITRIOL 0.25 MCG CAPSULE (FP) PO SCH (10:00)
[2022-01-18] MEDS ORDERED: ENOXAPARIN NA (PORCINE) 30 MG/0.3 ML DISP.SYRIN SQ ONE (10:20)
[2022-01-18] MEDS ORDERED: CEFTRIAXONE 1 GM/50 ML BAG ONE ×2 (10:20→10:21)
[2022-01-18] MEDS: CEFTRIAXONE 1 GM in DEXTROSE 5%-WATER - 50 ML IVPB SCH (10:37)
[2022-01-18] MEDS: ENOXAPARIN NA (PORCINE) 30 MG/0.3 ML DISP.SYRIN SQ SCH (10:37)
[2022-01-18] MEDS: LOSARTAN POTASSIUM 50 MG TABLET PO SCH (11:52)
[2022-01-18] MEDS: SEVELAMER CARBONATE 800 MG TAB (FP) PO SCH ×2 (11:52→17:22)
[2022-01-18] MEDS: TORSEMIDE 20 MG TABLET (FP) PO SCH (11:52)
[2022-01-18] MEDS ORDERED: CALCIUM ACETATE 667 MG CAPSULE (FP) PO SCH ×2 (12:00)
[2022-01-18] MEDS ORDERED: SODIUM CHLORIDE 250 ML IV PRN ×2 (13:00→14:00)
[2022-01-18 16:58] VITALS: BMI 19.4
[2022-01-19] MEDS ORDERED: LEVOTHYROXINE NA 50 MCG TABLET (FP) PO SCH (07:00)
[2022-01-19] MEDS ORDERED: glipiZIDE 5 MG TABLET (FP) PO SCH (07:00)
[2022-01-19] MEDS: SEVELAMER CARBONATE 800 MG TAB (FP) PO SCH ×3 (08:40→17:19)
[2022-01-19] MEDS: ENOXAPARIN NA (PORCINE) 30 MG/0.3 ML DISP.SYRIN SQ SCH ×2 (09:50→11:01)
[2022-01-19] MEDS: LOSARTAN POTASSIUM 50 MG TABLET PO SCH ×2 (09:50→11:01)
[2022-01-19] MEDS: TORSEMIDE 20 MG TABLET (FP) PO SCH ×2 (09:50→11:01)
[2022-01-19] MEDS ORDERED: CALCITRIOL 0.25 MCG CAPSULE (FP) PO SCH (10:00)
[2022-01-19] MEDS ORDERED: DEXTROSE 5%-WATER - 50 ML IVPB ONE (10:58)
[2022-01-19] MEDS ORDERED: cefTRIAXone SODIUM 1 GM VIAL ONE (10:58)
[2022-01-19] MEDS: CEFTRIAXONE 1 GM in DEXTROSE 5%-WATER - 50 ML IVPB SCH (11:43)
[2022-01-19 14:34] VITALS: BP 163/86; PULSE 67; TEMP 97.5
[2022-01-19] MEDS ORDERED: CEFUROXIME AXETIL 250 MG TABLET PO ONE (17:24)
== END 2022-01-19 18:47 | disposition home or self-care (01) ==
LOC: JER 05:42 → JERBED 08:10 → INTOOBSV 08:10 → J6S 16:06
PROVIDERS: ADMIT Internal Medicine; ATTEND Nurse Practitioner Family
PROC: 3E03329 Introduction of Other Anti-infective into Peripheral Vein, Percutaneous Approach (ICD-10-PCS; principal; 2022-01-18)
PROC: 3E023GC Introduction of Other Therapeutic Substance into Muscle, Percutaneous Approach (ICD-10-PCS; 2022-01-18)
DX: I13.11 Hypertensive heart and chronic kidney disease without heart failure, with stage 5 chronic kidney disease, or end stage renal disease (principal); E11.22 Type 2 diabetes mellitus with diabetic chronic kidney disease; I12.0 Hypertensive chronic kidney disease with stage 5 chronic kidney disease or end stage renal disease; N18.6 End stage renal disease; Z99.2 Dependence on renal dialysis; Z91.15 Patient's noncompliance with renal dialysis; R06.02 Shortness of breath; D64.9 Anemia, unspecified; E03.9 Hypothyroidism, unspecified
CPT/HCPCS: 36415; 71045-TC-FY; 71046-TC-FY; 80053; 82962; 83880; 84484; 85025; 86803; 87340; 93005; 93010; 96365; 96372; 99285-25; C9803-CS; G0378; U0003; U0005

== ENCOUNTER 2022-07-04 11:21 | Inpatient (IN) | payer OTHER ==
[2022-07-04 11:32] VITALS: BMI 18.8
[2022-07-04 13:55] LABS: VENOUS BASE EXCESS -2.1 mmol/L (-2-2); VENOUS O2 SATURATION 24.5 % (70-80); VENOUS PCO2 47.8 mmHg (38-52); VENOUS PH 7.319 (7.310-7.410)
[2022-07-04 14:02] LABS: HEMATOCRIT 28.2 % (35.4-49); MCH 31.8 pg (25.7-33.7); MEAN CELL VOLUME 99.1 fl (80-96); MEAN PLT VOLUME 11.3 fl (7.5-11.1); PLATELET COUNT 75 10^3/uL (134-434); RBC 2.85 M/mm3 (4.00-5.60); RDW 16.6 % (11.9-15.9); WHITE BLOOD COUNT 6.1 K/mm3 (4.0-10.0)
[2022-07-04 14:30] LABS: INR 1.56 (0.83-1.09)
[2022-07-04 14:34] LABS: CHLORIDE 88 mmol/L (98-107); SODIUM 124 mmol/L (136-145)
[2022-07-04 14:37] LABS: BLOOD UREA NITROGEN 57.1 mg/dL (7-18); CALCIUM 7.5 mg/dL (8.5-10.1)
[2022-07-04 14:38] LABS: ALBUMIN 2.2 g/dl (3.4-5.0); ANION GAP 14 MMOL/L (8-16); CO2 22 mmol/L (21-32)
[2022-07-04 14:40] LABS: SGPT/ALT 16 U/L (13-61)
[2022-07-04 14:41] LABS: CREATININE 6.9 mg/dL (0.55-1.3); SGOT/AST 19 U/L (15-37)
[2022-07-04 14:42] LABS: BILIRUBIN,TOTAL 0.6 mg/dL (0.2-1)
[2022-07-04] MEDS ORDERED: INSULIN REGULAR HUMAN 100 UNITS/ML *VIAL SQ ONE (14:42)
[2022-07-04 14:43] LABS: ALK PHOS 135 U/L (45-117)
[2022-07-04] MEDS ORDERED: KCL 10 MEQ IVPB 10 MEQ/100 ML INFUS.BAG IVPB SCH (14:45)
[2022-07-04 14:46] LABS: GLUCOSE,RANDOM 532 mg/dL (74-106)
[2022-07-04] MEDS ORDERED: SODIUM CHLORIDE 0.9% 500 ML INFUS.BAG IV ONE (14:46)
[2022-07-04] MEDS ORDERED: KCL 10 MEQ IVPB 10 MEQ/100 ML INFUS.BAG IVPB ONE (14:53)
[2022-07-04 15:39] LABS: ANISOCYTOSIS 0; MACROCYTOSIS 0
[2022-07-04 17:39] LABS: CHLORIDE 106 mmol/L (98-107); SODIUM 135 mmol/L (136-145)
[2022-07-04 17:42] LABS: ANION GAP 11 MMOL/L (8-16); BLOOD UREA NITROGEN 47.7 mg/dL (7-18); CO2 19 mmol/L (21-32); GLUCOSE,RANDOM 371 mg/dL (74-106)
[2022-07-04 17:45] LABS: CREATININE 4.9 mg/dL (0.55-1.3); SGOT/AST 12 U/L (15-37); SGPT/ALT 10 U/L (13-61)
[2022-07-04 17:47] LABS: BILIRUBIN,TOTAL 0.4 mg/dL (0.2-1); TOT PROT 4.1 g/dl (6.4-8.2)
[2022-07-04 18:11] LABS: ALBUMIN 1.5 g/dl (3.4-5.0); ALK PHOS 97 U/L (45-117); CALCIUM 5.4 mg/dL (8.5-10.1)
[2022-07-04] MEDS ORDERED: CALCIUM GLUC IN NACL, ISO-OSM 1 GM/50 ML BAG IVPB ONE (18:31)
[2022-07-04] MEDS ORDERED: CALCIUM GLUCONATE 10% - 1,000 MG/10 ML VIAL IVPB ONE (18:44)
[2022-07-04] MEDS ORDERED: CEFEPIME 1 GM in DEXTROSE 5%-WATER 100 ML IVPB ONE (19:00)
[2022-07-04] MEDS ORDERED: ONDANSETRON 4 MG/2 ML VIAL IVPUSH PRN (19:05)
[2022-07-04] MEDS ORDERED: ACETAMINOPHEN 1000 MG/100 ML BAG IVPB PRN (19:07)
[2022-07-04] MEDS ORDERED: CALCIUM GLUCONATE 10% - 1,000 MG/10 ML VIAL ONE (19:34)
[2022-07-04] MEDS ORDERED: CEFEPIME 1 GM/100 ML BAG IVPB ONE (19:34)
[2022-07-04] MEDS: INSULIN (LEVEMIR) 100 UNITS/ML UNITS SQ SCH ×2 (20:10→23:39)
[2022-07-04 21:16] LABS: MAGNESIUM 1.6 mg/dL (1.8-2.4)
[2022-07-04 21:20] LABS: PHOSPHOROUS 2.6 mg/dL (2.5-4.9)
[2022-07-04] MEDS ORDERED: HEPARIN NA (PORCINE) 5,000 UNITS/ML 1ML VIAL ONE (22:27)
[2022-07-04] MEDS ORDERED: PANTOPRAZOLE SODIUM 40 MG/100 ML BAG IVPB ONE (22:27)
[2022-07-04] MEDS ORDERED: INSULIN (LEVEMIR) 100 UNITS/ML UNITS SQ ONE (22:43)
[2022-07-04] MEDS: HEPARIN NA (PORCINE) 5,000 UNITS/ML 1ML VIAL SQ SCH (23:38)
[2022-07-04] MEDS: PANTOPRAZOLE SODIUM 40 MG VIAL IVPUSH SCH (23:39)
[2022-07-05] MEDS ORDERED: LEVOTHYROXINE NA 50 MCG TABLET (FP) ONE (06:50)
[2022-07-05] MEDS ORDERED: HEPARIN NA (PORCINE) 5,000 UNITS/ML 1ML VIAL ONE (06:50)
[2022-07-05] MEDS ORDERED: glipiZIDE 5 MG TABLET (FP) ONE (06:50)
[2022-07-05] MEDS ORDERED: glipiZIDE 5 MG TABLET (FP) PO SCH (07:00)
[2022-07-05] MEDS: LEVOTHYROXINE NA 50 MCG TABLET (FP) PO SCH (07:34)
[2022-07-05] MEDS: HEPARIN NA (PORCINE) 5,000 UNITS/ML 1ML VIAL SQ SCH (07:34)
[2022-07-05] MEDS: INSULIN SLIDING SCALE (NOVOLOG) 1 VIAL SQ SCH ×3 (07:34→17:54)
[2022-07-05] MEDS ORDERED: LOSARTAN POTASSIUM 50 MG TABLET ONE (09:06)
[2022-07-05] MEDS ORDERED: PANTOPRAZOLE 40 MG TABLET PO SCH (10:00)
[2022-07-05] MEDS: INSULIN (LEVEMIR) 100 UNITS/ML UNITS SQ SCH ×2 (10:02→21:34)
[2022-07-05] MEDS ORDERED: amLODIPine BESYLATE 5 MG TABLET (FP) ONE (10:03)
[2022-07-05] MEDS ORDERED: SODIUM CHLORIDE 250 ML IV PRN ×2 (10:08→10:55)
[2022-07-05] MEDS: LOSARTAN POTASSIUM 50 MG TABLET PO SCH (10:09)
[2022-07-05] MEDS: SEVELAMER CARBONATE 800 MG TAB (FP) PO SCH ×3 (10:09→16:49)
[2022-07-05] MEDS: amLODIPine BESYLATE 5 MG TABLET (FP) PO SCH (10:09)
[2022-07-05] MEDS: TORSEMIDE 20 MG TABLET (FP) PO SCH (10:09)
[2022-07-05] MEDS: PANTOPRAZOLE SODIUM 40 MG VIAL IVPUSH SCH ×2 (10:09→21:35)
[2022-07-05 11:40] LABS: HEMATOCRIT 26.3 % (35.4-49); HEMOGLOBIN 8.7 GM/dL (11.7-16.9); MCH 31.7 pg (25.7-33.7); MCHC 33.1 g/dl (32.0-35.9); MEAN CELL VOLUME 95.8 fl (80-96); MEAN PLT VOLUME 11.1 fl (7.5-11.1); PLATELET COUNT 100 10^3/uL (134-434); RBC 2.75 M/mm3 (4.00-5.60); RDW 15.9 % (11.9-15.9); WHITE BLOOD COUNT 6.7 K/mm3 (4.0-10.0)
[2022-07-05] MEDS ORDERED: EPOETIN ALFA-EPBX 10,000 UNIT/ML VIAL IVPUSH ONE (12:00)
[2022-07-05 12:08] LABS: CHLORIDE 96 mmol/L (98-107); SODIUM 131 mmol/L (136-145)
[2022-07-05 12:09] LABS: CHLORIDE 95 mmol/L (98-107); SODIUM 130 mmol/L (136-145)
[2022-07-05 12:11] LABS: ANISOCYTOSIS 0; MACROCYTOSIS 1+; PLATELET ESTIMATE DECREASED
[2022-07-05 12:12] LABS: ANION GAP 15 MMOL/L (8-16); CALCIUM 7.5 mg/dL (8.5-10.1); CO2 20 mmol/L (21-32); CO2 21 mmol/L (21-32); GLUCOSE,RANDOM 99 mg/dL (74-106); MAGNESIUM 1.8 mg/dL (1.8-2.4)
[2022-07-05 12:13] LABS: BLOOD UREA NITROGEN 68.4 mg/dL (7-18); GLUCOSE,RANDOM 101 mg/dL (74-106)
[2022-07-05 12:15] LABS: PHOSPHOROUS 2.3 mg/dL (2.5-4.9); SGOT/AST 24 U/L (15-37); SGPT/ALT 18 U/L (13-61)
[2022-07-05 12:17] LABS: BILIRUBIN,TOTAL 0.6 mg/dL (0.2-1); TOT PROT 5.6 g/dl (6.4-8.2)
[2022-07-05 12:19] LABS: CREATININE 7.6 mg/dL (0.55-1.3)
[2022-07-05 12:24] LABS: ALBUMIN 2.1 g/dl (3.4-5.0); ALK PHOS 149 U/L (45-117); CALCIUM 7.6 mg/dL (8.5-10.1); CREATININE 7.5 mg/dL (0.55-1.3); N-TERMINAL BNP > 35000.0 pg/ml (5-125)
[2022-07-05] MEDS ORDERED: CEFEPIME 1 GM in DEXTROSE 5%-WATER - 100 ML IVPB SCH (14:00)
[2022-07-05] MEDS: CEFEPIME 1 GM in DEXTROSE 5%-WATER 100 ML IVPB SCH (16:11)
[2022-07-05] MEDS ORDERED: CEFEPIME 1 GM in DEXTROSE 5%-WATER 100 ML IVPB SCH (19:00)
[2022-07-06] MEDS: LEVOTHYROXINE NA 50 MCG TABLET (FP) PO SCH (06:26)
[2022-07-06] MEDS: INSULIN SLIDING SCALE (NOVOLOG) 1 VIAL SQ SCH ×3 (06:27→16:51)
[2022-07-06] MEDS: LOSARTAN POTASSIUM 50 MG TABLET PO SCH (09:29)
[2022-07-06] MEDS: SEVELAMER CARBONATE 800 MG TAB (FP) PO SCH ×3 (09:29→16:51)
[2022-07-06] MEDS: PANTOPRAZOLE SODIUM 40 MG VIAL IVPUSH SCH ×2 (09:29→21:42)
[2022-07-06] MEDS: CEFEPIME 1 GM in DEXTROSE 5%-WATER 100 ML IVPB SCH (09:30)
[2022-07-06] MEDS: amLODIPine BESYLATE 5 MG TABLET (FP) PO SCH (09:30)
[2022-07-06] MEDS: TORSEMIDE 20 MG TABLET (FP) PO SCH (09:30)
[2022-07-06] MEDS: INSULIN (LEVEMIR) 100 UNITS/ML UNITS SQ SCH ×2 (11:23→21:42)
[2022-07-06 12:54] LABS: HEMATOCRIT 27.6 % (35.4-49); HEMOGLOBIN 9.3 GM/dL (11.7-16.9); MCH 32.4 pg (25.7-33.7); MCHC 33.7 g/dl (32.0-35.9); MEAN CELL VOLUME 96.1 fl (80-96); MEAN PLT VOLUME 10.5 fl (7.5-11.1); PLATELET COUNT 118 10^3/uL (134-434); RBC 2.88 M/mm3 (4.00-5.60); RDW 16.1 % (11.9-15.9); WHITE BLOOD COUNT 5.6 K/mm3 (4.0-10.0)
[2022-07-06 13:12] LABS: CALCIUM 7.5 mg/dL (8.5-10.1)
[2022-07-06 13:16] LABS: CREATININE 5.1 mg/dL (0.55-1.3)
[2022-07-06 13:59] LABS: ANISOCYTOSIS 1+; MACROCYTOSIS 0; TARGET CELLS 1+
[2022-07-06] MEDS: HYDROCORTISONE 2.5% TOPICAL CREAM 30 GM TUBE RC SCH (21:56)
[2022-07-07] MEDS: INSULIN SLIDING SCALE (NOVOLOG) 1 VIAL SQ SCH ×2 (06:31→11:39)
[2022-07-07] MEDS: LEVOTHYROXINE NA 50 MCG TABLET (FP) PO SCH (06:31)
[2022-07-07] MEDS: SEVELAMER CARBONATE 800 MG TAB (FP) PO SCH ×2 (09:42→11:43)
[2022-07-07] MEDS: LOSARTAN POTASSIUM 50 MG TABLET PO SCH (10:15)
[2022-07-07] MEDS: amLODIPine BESYLATE 5 MG TABLET (FP) PO SCH (10:15)
[2022-07-07] MEDS: PANTOPRAZOLE SODIUM 40 MG VIAL IVPUSH SCH (10:15)
[2022-07-07] MEDS: CEFEPIME 1 GM in DEXTROSE 5%-WATER 100 ML IVPB SCH (10:15)
[2022-07-07] MEDS: INSULIN (LEVEMIR) 100 UNITS/ML UNITS SQ SCH (10:16)
[2022-07-07] MEDS: HYDROCORTISONE 2.5% TOPICAL CREAM 30 GM TUBE RC SCH (10:17)
[2022-07-07 10:32] LABS: HEMATOCRIT 28.2 % (35.4-49); HEMOGLOBIN 9.5 GM/dL (11.7-16.9); MCH 32.8 pg (25.7-33.7); MCHC 33.7 g/dl (32.0-35.9); MEAN CELL VOLUME 97.4 fl (80-96); MEAN PLT VOLUME 10.5 fl (7.5-11.1); PLATELET COUNT 163 10^3/uL (134-434); RDW 15.7 % (11.9-15.9)
[2022-07-07 10:54] LABS: CALCIUM 7.3 mg/dL (8.5-10.1)
[2022-07-07 10:55] LABS: BLOOD UREA NITROGEN 42.4 mg/dL (7-18)
[2022-07-07 10:59] LABS: CREATININE 6.1 mg/dL (0.55-1.3)
[2022-07-07 11:34] LABS: ANISOCYTOSIS 0; HELMET CELLS 0; HOWELL-JOLLY BODIES 0; MACROCYTOSIS 0; OVALOCYTE 0; ROULEAU 0; SICKELED CELLS 0; TARGET CELLS 0; TEAR DROP CELLS 0; TOXIC GRANULATION 0
[2022-07-07] MEDS: TORSEMIDE 20 MG TABLET (FP) PO SCH (11:40)
[2022-07-07 11:48] LABS: CORRECTED WBC 5.58 K/mm3; WHITE BLOOD COUNT 7.2 K/mm3 (4.0-10.0)
[2022-07-07 12:59] VITALS: BP 136/61; PULSE 63; RESP 19; TEMP 97.7
== END 2022-07-07 13:54 | disposition home or self-care (01) | DRG 640 ==
LOC: JER 11:21 → JERBED 17:50 → OBSVTOIN 18:55 → J5S 07-05 14:51
PROVIDERS: ATTEND Internal Medicine
PROC: 5A1D70Z Performance of Urinary Filtration, Intermittent, Less than 6 Hours Per Day (ICD-10-PCS; principal; 2022-07-05)
DX: E89.1 Postprocedural hypoinsulinemia (principal); N18.6 End stage renal disease; C25.9 Malignant neoplasm of pancreas, unspecified; E46 Unspecified protein-calorie malnutrition; Z68.1 Body mass index [BMI] 19.9 or less, adult; I12.0 Hypertensive chronic kidney disease with stage 5 chronic kidney disease or end stage renal disease; K62.5 Hemorrhage of anus and rectum; E03.9 Hypothyroidism, unspecified; E11.22 Type 2 diabetes mellitus with diabetic chronic kidney disease; Z99.2 Dependence on renal dialysis; E83.51 Hypocalcemia; E78.5 Hyperlipidemia, unspecified; Y83.8 Other surgical procedures as the cause of abnormal reaction of the patient, or of later complication, without mention of misadventure at the time of the procedure; D69.6 Thrombocytopenia, unspecified; R19.7 Diarrhea, unspecified; Z79.84 Long term (current) use of oral hypoglycemic drugs
CPT/HCPCS: 0241U-QW; 36415; 71045-TC-FY; 80048; 80053; 80061; 82010; 82272; 82553; 82803; 82962; 83605; 83735; 83880; 84100; 84439; 84443; 84484; 85025; 85610; 85730; 86803; 86850; 86900; 86901; 87040; 87340; 93005; 93010; 97116-GP; 97161-GP; 99285-25; G0378; J1644; Q5106

== ENCOUNTER 2025-05-26 11:56 | Emergency (ER) | payer OTHER ==
[2025-05-26 12:33] VITALS: BMI 19.5
[2025-05-26] MEDS ORDERED: ACETAMINOPHEN INJECTION 100 ML ONE (13:07)
[2025-05-26 13:08] LABS: ABSOLUTE IMMATURE GRANULOCYTES 0.03 x10^3/uL (0.0-0.031); BASOPHILS # 0.09 x10^3/uL (0.01-0.08); EOSINOPHIL % 2.7 % (0.8-7.0); EOSINOPHILS # 0.28 x10^3/uL (0.04-0.54); MCHC 31.5 g/dl (32.3-36.5); MEAN CELL VOLUME 96.9 fl (79.0-92.2); MEAN PLT VOLUME 11.7 fl (9.4-12.4); MONOCYTE # 1.13 x10^3/uL (0.30-0.82); MONOCYTE % 11.0 % (5.3-12.2); RDW 14.6 % (12.2-16.4)
[2025-05-26] MEDS: ACETAMINOPHEN 1000 MG/100 ML BAG IVPB ONE (13:12)
[2025-05-26 13:16] LABS: INR 1.46 (0.83-1.09); PROTHROMBIN TIME (PATIENT) 15.9 SEC (9.7-13.0)
[2025-05-26 13:18] LABS: ACTIVATED PTT 36.1 SECONDS (25.2-36.5)
[2025-05-26] MEDS ORDERED: FAMOTIDINE 20 MG/50 ML IVPB 20 MG/50 ML MG IVPB ONE (13:20)
[2025-05-26] MEDS: FAMOTIDINE 20 MG/50 ML IVPB 20 MG/50 ML MG IVPB ONE (13:21)
[2025-05-26 13:35] LABS: GLUCOSE,RANDOM 203.0 mg/dL (74-106); TOT PROT 7.8 g/dl (6.4-8.2)
[2025-05-26 13:36] LABS: CO2 20.0 mmol/L (21-32)
[2025-05-26 13:38] LABS: ALK PHOS 210.0 U/L (40-150)
[2025-05-26 13:41] LABS: CREATININE 5.66 mg/dL (0.55-1.3); SGOT/AST 18.0 U/L (5-34); SGPT/ALT 13.0 U/L (0-55)
[2025-05-26 14:01] LABS: HCV DIAGNOSTIC IN-HOUSE W/RFLX NON-REACTIVE (NONREACTIVE)
[2025-05-26 14:02] LABS: HIV INTERPRETATION NEGATIVE (NEGATIVE)
[2025-05-26 14:06] VITALS: RESP 18
[2025-05-26] MEDS: SODIUM ZIRCONIUM CYCLOSILICATE (LOKELMA) 5 GM PACKET PO ONE (14:34)
[2025-05-26] MEDS ORDERED: SODIUM ZIRCONIUM CYCLOSILICATE (LOKELMA) 5 GM PACKET ONE (14:37)
[2025-05-26 14:48] VITALS: BP 173/83; PULSE 70; TEMP 97.4
== END 2025-05-26 15:11 | disposition home or self-care (01) ==
LOC: JER 11:56
PROC: 3E033GC Introduction of Other Therapeutic Substance into Peripheral Vein, Percutaneous Approach (ICD-10-PCS; principal; 2025-05-26)
PROC: 3E033NZ Introduction of Analgesics, Hypnotics, Sedatives into Peripheral Vein, Percutaneous Approach (ICD-10-PCS; 2025-05-26)
DX: R07.81 Pleurodynia (principal); C25.9 Malignant neoplasm of pancreas, unspecified; R10.11 Right upper quadrant pain; R10.13 Epigastric pain; G89.29 Other chronic pain; R18.8 Other ascites; R17 Unspecified jaundice; R01.1 Cardiac murmur, unspecified; I12.0 Hypertensive chronic kidney disease with stage 5 chronic kidney disease or end stage renal disease; N18.6 End stage renal disease; Z99.2 Dependence on renal dialysis
CPT/HCPCS: 36415; 71045-TC-FY; 80053; 82550; 83735; 84100; 84484; 85025; 85610; 85730; 86803; 87389; 93005; 93010; 99285-25

== ENCOUNTER 2025-06-21 13:50 | Inpatient (IN) | payer OTHER ==
[2025-06-21] MEDS ORDERED: ONDANSETRON 4 MG/2 ML VIAL IVPUSH ONE (15:14)
[2025-06-21 15:45] LABS: MCHC 31.7 g/dl (32.3-36.5); MEAN CELL VOLUME 97.7 fl (79.0-92.2); MEAN PLT VOLUME 11.4 fl (9.4-12.4); RDW 14.8 % (12.2-16.4)
[2025-06-21 15:58] LABS: INR 1.51 (0.83-1.09); PROTHROMBIN TIME (PATIENT) 16.6 SEC (9.7-13.0)
[2025-06-21 16:01] LABS: ACTIVATED PTT 35.1 SECONDS (25.2-36.5)
[2025-06-21] MEDS: CEFEPIME HCL 2 GM VIAL (RESTRICTED TO ID) IVPB ONE (16:15)
[2025-06-21] MEDS ORDERED: ACETAMINOPHEN INJECTION 100 ML ONE (16:22)
[2025-06-21] MEDS ORDERED: CEFEPIME HCL/D5W 2 GM/50 ML BAG IVPB ONE (16:22)
[2025-06-21 16:27] LABS: BG HCT 38.0 % (35.4-49); VENOUS BASE EXCESS -4.2 mmol/L (-2-2); VENOUS O2 SATURATION 47.5 % (70-80); VENOUS PCO2 42.0 mmHg (38-52); VENOUS PH 7.328 (7.310-7.410)
[2025-06-21] MEDS: SODIUM CHLORIDE 0.9% 500 ML INFUS.BAG IV ONE (16:29)
[2025-06-21] MEDS: ACETAMINOPHEN 1000 MG/100 ML BAG IVPB ONE (16:29)
[2025-06-21 16:39] LABS: GLUCOSE,RANDOM 431 mg/dL (74-106)
[2025-06-21 16:40] LABS: TOT PROT 8.3 g/dl (6.4-8.2)
[2025-06-21 16:41] LABS: CO2 20 mmol/L (21-32)
[2025-06-21 16:42] LABS: ALK PHOS 195 U/L (40-150)
[2025-06-21 16:45] LABS: CREATININE 6.61 mg/dL (0.55-1.3); SGOT/AST 19 U/L (5-34); SGPT/ALT < 6 U/L (0-55)
[2025-06-21] MEDS ORDERED: VANCOMYCIN 1 GM PREMIX (F) 1 GM/200 ML BAG ONE (17:27)
[2025-06-21] MEDS ORDERED: INSULIN REGULAR HUMAN 100 UNITS/ML *VIAL ONE ×2 (17:28→18:05)
[2025-06-21] MEDS: VANCOMYCIN 1,000 MG in DEXTROSE 5%-WATER - 250 ML IVPB ONE (18:07)
[2025-06-21] MEDS: INSULIN REGULAR HUMAN 100 UNITS/ML *VIAL SQ ONE (18:07)
[2025-06-22] MEDS: SODIUM CHLORIDE 1,000 ML IV SCH (00:08)
[2025-06-22] MEDS: amLODIPine BESYLATE 5 MG TABLET (FP) PO ONE (00:56)
[2025-06-22] MEDS ORDERED: PIPERACILLIN/TAZOB 2.25 GM 2.25 GM in DEXTROSE 5%-WATER - 50 ML IVPB SCH (02:00)
[2025-06-22] MEDS: PIPERACILLIN/TAZOB 2.25 GM 2.25 GM in DEXTROSE 5%-WATER - 50 ML IVPB SCH (02:18)
[2025-06-22] MEDS: DEXTROSE 50%-WATER 25 GM/50 ML DISP.SYRIN IVPUSH ONE (06:14)
[2025-06-22] MEDS: LEVOTHYROXINE NA 100 MCG TABLET (FP) PO SCH (06:16)
[2025-06-22] MEDS: INSULIN ASPART SLIDING SCALE (NOVOLOG) 1 VIAL SQ SCH (06:16)
[2025-06-22] MEDS: DEXTROSE 5%-NORMAL SALINE 1,000 ML IV SCH (06:16)
[2025-06-22 08:36] LABS: GLUCOSE,RANDOM 147 mg/dL (74-106); TOT PROT 6.1 g/dl (6.4-8.2)
[2025-06-22 08:37] LABS: CO2 16 mmol/L (21-32)
[2025-06-22 08:39] LABS: ALK PHOS 157 U/L (40-150)
[2025-06-22 08:41] LABS: SGOT/AST 14 U/L (5-34); SGPT/ALT < 6 U/L (0-55)
[2025-06-22 08:42] LABS: CREATININE 7.02 mg/dL (0.55-1.3)
[2025-06-22] MEDS: SEVELAMER CARBONATE 800 MG TAB (FP) PO SCH (09:57)
[2025-06-22] MEDS ORDERED: HEPARIN NA (PORCINE) 5,000 UNITS/ML 1ML VIAL SQ SCH (10:00)
[2025-06-22 11:41] LABS: IMMATURE PLATELET FRACTION # 7.70 x10^3/uL; MCHC 31.7 g/dl (32.3-36.5); MEAN CELL VOLUME 96.6 fl (79.0-92.2); MEAN PLT VOLUME 11.6 fl (9.4-12.4); RDW 14.7 % (12.2-16.4)
[2025-06-22] MEDS: amLODIPine BESYLATE 10 MG TABLET (FP) PO SCH (11:52)
[2025-06-22] MEDS: LOSARTAN POTASSIUM 50 MG TABLET PO SCH (11:52)
[2025-06-22] MEDS: VANCOMYCIN ORAL SOLUTION 125 MG/2.5 ML PO SCH (13:32)
[2025-06-22] MEDS ORDERED: CEFEPIME HCL 2 GM VIAL (RESTRICTED TO ID) IVPB SCH (15:00)
[2025-06-22] MEDS ORDERED: SODIUM CHLORIDE 250 ML IV PRN (15:23)
[2025-06-22 15:25] VITALS: BMI 19.4
[2025-06-22] MEDS ORDERED: LEVOTHYROXINE NA 100 MCG TABLET (FP) PO SCH (16:21)
[2025-06-22] MEDS ORDERED: AMINO ACID 4.25%/D5W/ELECTROLYTES IV SCH (16:30)
[2025-06-22 16:38] VITALS: RESP 18; TEMP 98.6
[2025-06-22] MEDS ORDERED: CEFEPIME 1 GM in DEXTROSE 5%-WATER 100 ML IVPB SCH (17:15)
[2025-06-22] MEDS ORDERED: PHENYLEPH/MINERAL OIL/PETROLAT 28 GM OINTMENT RC PRN (17:25)
[2025-06-22 18:22] LABS: HCV DIAGNOSTIC IN-HOUSE W/RFLX NON-REACTIVE (NONREACTIVE); HEPATITIS B SURF AG NON-MATERN NON-REACTIVE (NONREACTIVE)
[2025-06-22] MEDS: EPOETIN ALFA-EPBX 4,000 UNIT/ML VIAL SQ ONE (18:28)
[2025-06-22 19:27] VITALS: BP 146/77; PULSE 96
[2025-06-22] MEDS: CEFEPIME HCL/D5W 1 GM/50 ML BAG IVPB SCH (19:50)
[2025-06-22] MEDS: BENZOCAINE 28 GM HEMORRHOIDAL OINTMENT TP PRN (19:50)
[2025-06-22] MEDS: CEFEPIME 1 GM in DEXTROSE 5%-WATER 100 ML IVPB SCH (20:09)
[2025-06-23] MEDS ORDERED: LEVOTHYROXINE 125 MCG, LEVOTHYROXINE 100 MCG PO SCH (07:00)
== END 2025-06-22 22:00 | disposition short-term general hospital (02) | DRG 871 ==
LOC: JER 13:50 → JERBED 16:58 → J6W TELE 23:40
PROVIDERS: ADMIT Internal Medicine; ATTEND Internal Medicine
PROC: 5A1D70Z Performance of Urinary Filtration, Intermittent, Less than 6 Hours Per Day (ICD-10-PCS; principal; 2025-06-22)
DX: A41.9 Sepsis, unspecified organism (principal); E43 Unspecified severe protein-calorie malnutrition; N18.6 End stage renal disease; I12.0 Hypertensive chronic kidney disease with stage 5 chronic kidney disease or end stage renal disease; E87.1 Hypo-osmolality and hyponatremia; C25.9 Malignant neoplasm of pancreas, unspecified; Z68.1 Body mass index [BMI] 19.9 or less, adult; K52.1 Toxic gastroenteritis and colitis; Z99.2 Dependence on renal dialysis; E03.9 Hypothyroidism, unspecified; E11.22 Type 2 diabetes mellitus with diabetic chronic kidney disease; K64.9 Unspecified hemorrhoids; D70.9 Neutropenia, unspecified; R50.81 Fever presenting with conditions classified elsewhere; T45.1X5A Adverse effect of antineoplastic and immunosuppressive drugs, initial encounter
CPT/HCPCS: 36415; 71045-TC-FY; 74177-TC; 80053; 82272; 82803; 82962; 83605; 83690; 83735; 84100; 84439; 84443; 84484; 85025; 85610; 85730; 86140; 86704; 86707; 86803; 86850; 86900; 86901; 87040; 87045; 87046; 87209; 87324; 87340; 87449; 87637-QW; 93005; 93010; 93306-TC; 99283-25; 99285-25; G0480; Q5106